=== PATIENT | female | born 1960 | race African-American/Black ===

== ENCOUNTER 2024-07-12 07:23 | Day surgery (SDC) | payer BC ==
[2024-07-09 14:44] VITALS: BMI 29.0
[2024-07-12 07:43] VITALS: PULSE 58; RESP 18
[2024-07-12] MEDS ORDERED: PROPOFOL 160 ML ONE ×2 (07:54→08:12)
[2024-07-12] MEDS ORDERED: LIDOCAINE HCL/PF 2% SDV 5ML VIAL ONE (07:54)
[2024-07-12 08:50] VITALS: TEMP 97.8
[2024-07-12 09:19] VITALS: BP 102/46
== END 2024-07-12 09:18 | disposition home or self-care (01) ==
LOC: FASU-ENDO 07:23
PROVIDERS: ATTEND Internal Medicine Gastroenterology
PROC: 0DJD8ZZ Inspection of Lower Intestinal Tract, Via Natural or Artificial Opening Endoscopic (ICD-10-PCS; principal; 2024-07-12 08:23)
DX: Z12.11 Encounter for screening for malignant neoplasm of colon (principal); K64.0 First degree hemorrhoids; K64.8 Other hemorrhoids; Z80.0 Family history of malignant neoplasm of digestive organs